=== PATIENT | female | born 2000 | race Caucasian/White ===

== ENCOUNTER 2021-10-20 19:16 | Emergency (ER) | payer OTHER ==
--- NOTE | 2021-10-20 19:44 | ED Physician Documentation ---
PD HPI ABD PAIN - Stated complaint Stated Complaint: L TOE PX,ABD PX - Chief complaint Chief Complaint: Abd Pain - History obtained from History obtained from: Patient - Additional information Additional information: 21yo female with LMP 09/07/21 (6w1d by dates) with+HPT 3/7 Has intermittent low abd cramping and nausea. Better with rest and warm bath Also L foot 1st/2nd toe painful, bent under a door yesterday. Review of Systems Ten Systems: 10 systems reviewed and negative Constitutional: reports: Reviewed and negative Cardiac: reports: Reviewed and negative Respiratory: reports: Reviewed and negative PD PAST MEDICAL HISTORY - Past Medical History Past Medical History: No - Past Surgical History Past Surgical History: Yes HEENT: Other - Present Medications Home Medications: Ambulatory Orders Medication Instructions Recorded Confirmed No Known Home Medications 10/20/21 10/20/21 - Allergies Allergies/Adverse Reactions: Allergies Allergy/AdvReac Type Severity Reaction Status Date / Time Penicillins Allergy Unknown Verified 10/20/21 19:24 - Social History Does the pt smoke?: No Smoking Status: Never smoker Does the pt drink ETOH?: No Does the pt have substance abuse?: No - Immunizations Immunizations are current?: No Immunizations: No immun PD ED PE NORMAL - Vitals Vital signs reviewed: Yes - General General: Alert and oriented X 3, No acute distress - Abdomen Abdomen: Normal bowel sounds, Soft, Non tender - Extremities Extremities: Other (Pain with flexion and ecchymosis of Left 1st/2nd toes. ) - Neuro Neuro: Alert and oriented X 3, Normal speech - Psych Psych: Normal mood, Normal affect Results - Vitals Vitals: Vital Signs - 24 hr 10/20/21 10/20/21 19:20 21:13 Temperature 36.4 C L Heart Rate 93 78 Respiratory 16 18 Rate Blood Pressure 135/83 H 133/75 H O2 Saturation 98 98 Oxygen O2 Source Room air - Labs Labs: Laboratory Tests 10/20/21 10/20/21 10/20/21 20:05 20:05 20:05 WBC 7.9 RBC 4.72 Hgb 13.3 Hct 39.8 MCV 84.3 MCH 28.2 MCHC 33.4 RDW 14.7 Plt Count 220 MPV 10.5 Neut # (Auto) 5.0 Lymph # (Auto) 2.2 [place] # (Auto) 0.5 Eos # (Auto) 0.2 Baso # (Auto) 0.0 Absolute Nucleated RBC 0.00 Nucleated RBC % 0.0 Sodium 134 L Potassium 3.5 Chloride 100 L Carbon Dioxide 26 Anion Gap 8.0 BUN 13 Creatinine 0.5 Estimated GFR (MDRD) 156 Glucose 99 Calcium 9.4 HCG, Quant 5344.00 PD MEDICAL DECISION MAKING - ED course Complexity details: re-evaluated patient ED course: 21-year-old G1 presents with mild pelvic pain in early . Nondiagnostic bedside ultrasound for me. But no evidence of free fluid. Ectopic is unlikely but not ruled out to the best of her ability so formal ultrasonography and serum quantitative beta-hCG was checked. Also complains of toe pain but the toes are nontender, fracture quite unlikely and as such patient declined x-ray especially in light of her being . Patient (and mom by speakerphone) request vitamin D level be checked, she has a history of vitamin D deficiency. I discussed with her that given her presenting complaint there is a chance that her insurance may not pay for it. Also discussed with her that this is a send out lab and she would be responsible for following up and interpreting results on her own. Knowing this she would still like to have her vitamin D level done tonight. Serum beta-hCG 5344, ultrasound showing suggestion of a gestational sac with free fluid. This was discussed by phone with the on-call OB, Dr. Stevens, Including the beta hCG and ultrasound results, noting that we could be just seeing a pseudocyst gestational sac. Given the fairly mild level of her symptoms recommends repeat beta-hCG in 48 hours but close return precautions which were discussed with the patient. Departure - Departure Disposition: 01 Home, Self Care Clinical Impression: of unknown anatomic location, Vitamin D deficiency Toe sprain Qualifiers: Encounter type: initial encounter Qualified Code(s): S93.509A - Unspecified sprain of unspecified toe(s), initial encounter Condition: Good Record reviewed to determine appropriate education?: Yes Instructions: ED Abdominal Pain Rule Out Ectopic Comments: You were seen today for pelvic pain in . We are unable to definitively diagnose an intrauterine based on ultrasound. There is a suggestion of a in the uterus but not enough to clearly rule out in an alternative location. Your beta-hCG was 5344. I discussed the case with our on-call manuscript editor. What she recommended is that we have a return in 48 hours, Monday evening around 7 PM for recheck of your test hormones. Return sooner if you develop severe pain, bleeding, or other new concerns. You have a Vitamin D blood test pending. The easiest way to get results is to go to the hospital website at [email or web address], click on the my [employer] tab and sign up for the patient portal. Discharge Date/Time: 10/20/21 21:12
[2021-10-20 20:11] LABS: BASOPHILS % (AUTO) 0.5 %; EOSINOPHILS # (AUTO) 0.2 10^3/uL (0.0-0.7); EOSINOPHILS % (AUTO) 2.7 %; HCT - HEMATOCRIT 39.8 % (37.0-47.0); HGB - HEMOGLOBIN 13.3 g/dL (12.0-16.0); LYMPHOCYTES # (AUTO) 2.2 10^3/uL (1.5-3.5); LYMPHOCYTES % (AUTO) 28.1 %; MEAN CORPUSCULAR HEMOGLOBIN 28.2 pg (27.0-31.0); MEAN CORPUSCULAR HGB CONC 33.4 g/dL (32.0-36.0); MEAN CORPUSCULAR VOLUME 84.3 fL (81.0-99.0); MEAN PLATELET VOLUME 10.5 fL (7.9-10.8); MONOCYTES # (AUTO) 0.5 10^3/uL (0.0-1.0); MONOCYTES % (AUTO) 5.7 %; NEUTROPHILS % (AUTO) 62.9 %; PLT - PLATELET COUNT 220 10^3/uL (130-450); RED BLOOD COUNT 4.72 10^6/uL (4.20-5.40); RED CELL DISTRIBUTION WIDTH 14.7 % (12.0-15.0); WHITE BLOOD COUNT 7.9 x10^3/uL (4.8-10.8)
[2021-10-20 20:21] LABS: CALCIUM 9.4 mg/dL (8.5-10.3); CREATININE 0.5 mg/dL (0.4-1.0); POTASSIUM 3.5 mmol/L (3.5-5.0)
[2021-10-20 21:16] VITALS: BP 133/75
--- NOTE | 2021-10-20 21:23 | Ultrasound Report ---
PROCEDURE: OB First Trimester w/TV INDICATIONS: preg 6w1d pelvic pain OUTSIDE/PRIOR DATING DATA: Last menstrual period (LMP): 09/14/2021. LMP-based estimated date of delivery (MAURISIO): 06/21/2022. First dating scan (date and location): Not applicable. Estimated date of delivery (MAURISIO) from first dating scan: Not applicable. TECHNIQUE: Real-time scanning was performed of the fetus and maternal pelvic organs, with image documentation. Endovaginal scanning was also performed to better visualize the fetus and maternal ovaries. COMPARISON: None FINDINGS: Embryo: Anechoic sac noted in the uterus which may represent early intrauterine . No yolk s ac or pole identified. Mean gestational sac diameter measures 0.51 cm corresponding to ultrasou nd estimated gestational age of 5 weeks 2 days. Heart rate: Not detected. Measurement variability in dating: +/- 4 weeks by LMP, +/- 7 days by mean sac diameter (use before 6 weeks gestation if crown-rump length not able to be measured), +/- 5 days by crown-rump length (6-12 weeks gestation). Maternal organs: Possible 3.2 x 1.6 x 2.2 cm right corpus luteal cyst. Left ovary is sonographically normal. Small amount of free fluid noted in the cul-de-sac the pelvis. IMPRESSION: Anechoic sac in the uterus which may represent early intrauterine , nonviable , or occult ectopic . Recommend close clinical observation, correlation with serial beta hCG and short-term follow-up obstetrical ultrasound in one week. Possible right ovarian corpus luteal cyst. Recommend reevaluation at time of short-term follow-up ult rasound in one week. Reviewed by: Brandi Christianson MD, PhD on 10/20/2021 9:22 PM PDT Approved by: Brandi Christianson MD, PhD on 10/20/2021 9:22 PM PDT Station ID: [id number]
== END 2021-10-20 21:12 | disposition home or self-care (01) ==
LOC: ED 19:16
DX: O9A.211 Injury, poisoning and certain other consequences of external causes complicating pregnancy, first trimester (principal); S93.505A Unspecified sprain of left lesser toe(s), initial encounter; X58.XXXA Exposure to other specified factors, initial encounter; O99.281 Endocrine, nutritional and metabolic diseases complicating pregnancy, first trimester; E55.9 Vitamin D deficiency, unspecified; Z3A.01 Less than 8 weeks gestation of pregnancy
CPT/HCPCS: 36415; 80048; 82306; 84702; 85025; 99282; 99284

== ENCOUNTER 2021-10-22 18:43 | Emergency (ER) | payer OTHER ==
[2021-10-22 19:13] VITALS: BP 119/72
--- NOTE | 2021-10-22 20:33 | ED Physician Documentation ---
History of Present Illness - Stated complaint Stated Complaint: HCG BT - Chief complaint Chief Complaint: Abd Pain - Additonal information Additional information: 21-year-old female return to the emergency department for a beta hCG check. Se en 2 days ago by my colleague. Limited bedside ultrasound revealed an anechoic structure within the uterus. Her hCG was 5000. Since being discharged no further abdominal pain. No vaginal bleeding or spotting. Here today for a recheck of her hCG. She returns to [place] tomorrow Review of Systems Constitutional: reports: Reviewed and negative Nose: reports: Reviewed and negative Throat: reports: Reviewed and negative Cardiac: reports: Reviewed and negative Respiratory: reports: Reviewed and negative GI: reports: Reviewed and negative : reports: Reviewed and negative Skin: reports: Reviewed and negative PD PAST MEDICAL HISTORY - Past Surgical History Past Surgical History: Yes HEENT: Other - Present Medications Home Medications: Ambulatory Orders Medication Instructions Recorded Confirmed No Known Home Medications 10/20/21 10/20/21 - Allergies Allergies/Adverse Reactions: Allergies Allergy/AdvReac Type Severity Reaction Status Date / Time Penicillins Allergy Unknown Verified 10/22/21 19:13 - Social History Does the pt smoke?: No Smoking Status: Never smoker Does the pt drink ETOH?: No Does the pt have substance abuse?: No - Immunizations Immunizations are current?: No Immunizations: No immun PD ED PE NORMAL - General General: Alert and oriented X 3, No acute distress, Well developed/nourished - HEENT HEENT: Atraumatic, Moist mucous membranes - Neck Neck: Supple, no meningeal sign, No adenopathy - Cardiac Cardiac: RRR, No murmur, No gallop - Respiratory Respiratory: No respiratory distress, Clear bilaterally - Abdomen Abdomen: Normal bowel sounds, Soft - Back Back: No CVA TTP, No spinal TTP - Derm Derm: Normal color, Warm and dry, No rash - Extremities Extremities: No deformity, No tenderness to palpate, Normal ROM s pain - Neuro Neuro: Alert and oriented X 3, acquisitions librarian 2-12 intact Eye Opening: Spontaneous Motor: Obeys Commands Verbal: Oriented GCS Score: 15 - Psych Psych: Normal mood Results - Vitals Vitals: Vital Signs - 24 hr 10/22/21 19:09 Temperature 36.3 C L Heart Rate 83 Respiratory 16 Rate Blood Pressure 119/72 O2 Saturation 100 Oxygen O2 Source Room air - Labs Labs: Laboratory Tests 10/22/21 19:42 HCG, Quant 30554.00 PD MEDICAL DECISION MAKING - ED course Complexity details: reviewed results, considered differential, d/w patient ED course: Well-appearing 21-year-old female return to the emergency department for evaluation of her beta hCG. Since being seen 2 days ago it has appropriately doubled to greater than 13,000. She has no abdominal pain, nausea or vomiting. No fevers. She is going to establish care with OB this upcoming week. Patient is stable for discharge home. Emergent return precautions were discussed for abdominal pain or sudden severe or different symptoms. Departure - Departure Disposition: Home, Self Care Clinical Impression: Qualifiers: Weeks of gestation: less than 8 weeks Qualified Code(s): Z3A.01 - Less than 8 weeks gestation of Condition: Stable Record reviewed to determine appropriate education?: Yes Comments: Evelin you were seen today in the emergency department for a recheck of your hormone levels in . They were just over 5002 days ago and today they are 13,000. This means that the hormone level is appropriately rising. You are declining any further abdominal pain. It is critical that you continue to follow-up with your OB providers come Monday. If at any point between now and then you develop abdominal pain, have uncontrolled vomiting or fevers please return immediately to the ER for a second evaluation.
== END 2021-10-22 20:42 | disposition home or self-care (01) ==
LOC: ED 18:43
DX: Z32.01 Encounter for pregnancy test, result positive (principal)
CPT/HCPCS: 36415; 84702